=== PATIENT | male | born 1970 | race African-American/Black ===

== ENCOUNTER 2019-01-17 12:53 | Inpatient (IN) | payer OTHER ==
[2019-01-17 15:51] VITALS: BMI 37.1
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
[2019-01-17] MEDS ORDERED: P-EPHED 60MG/TRIPROLIDI 2.5MG TABLET PO PRN (18:03)
[2019-01-17] MEDS ORDERED: MENTHOL/PHENOL 1 EACH UD MM PRN (18:03)
[2019-01-17] MEDS ORDERED: MAGNESIUM CITRATE 300 ML BOTTLE PO PRN (18:03)
[2019-01-17] MEDS ORDERED: LOPERAMIDE HCL 2 MG CAPSULE PO PRN (18:03)
[2019-01-17] MEDS ORDERED: NICOTINE POLACRILEX 2 MG GUM BC PRN (18:03)
[2019-01-17] MEDS ORDERED: MAGNESIUM HYDROX 2400MG/30ML ORAL SUSPENSION 30 ML CUP PO PRN (18:03)
[2019-01-17] MEDS ORDERED: guaiFENesin 200 MG/10 ML 10 ML UNIT-DOSE CUPS PO PRN (18:03)
[2019-01-17] MEDS ORDERED: ACETAMINOPHEN 325 MG TABLET (FP) PO PRN (18:03)
[2019-01-17] MEDS ORDERED: MAG HYDROX/AL HYDROX/SIMETH 30 ML UNIT-DOSE CUP PO PRN (18:03)
[2019-01-17] MEDS ORDERED: IBUPROFEN 400 MG TABLET (FP) PO PRN (18:03)
[2019-01-17] MEDS ORDERED: PROCHLORPERAZINE MALEATE 5 MG TABLET PO PRN (18:05)
--- NOTE | 2019-01-17 18:08 | PN ---
Teaching Attending Note Name of Resident: Martha Vallejo ATTENDING PHYSICIAN STATEMENT I saw and evaluated the patient. I reviewed the resident's note and discussed the case with the resident. I agree with the resident's findings and plan as documented. SUBJECTIVE: pt here requesting rehab- pt has long h/o cocaine/alcohol and MJ use. Pt is not in withdrawal and has low CIWA and COWS score OBJECTIVE: Vital Signs - 24 hr 01/17/19 15:40 Temperature 96.8 F L Pulse Rate 87 Respiratory 14 Rate Blood Pressure 134/74 alert and oriented non tremulous ASSESSMENT AND PLAN: Alcohol/cocaine/MJ use disorder- pt currently not with withdrawal Sx, to rehab unit for further management
[2019-01-17] MEDS ORDERED: cloNIDine HCL 0.1 MG TABLET PO PRN (18:12)
[2019-01-17] MEDS ORDERED: MELATONIN 5 MG TABLETS PO PRN (22:00)
[2019-01-17] MEDS: THIAMINE HCL 100 MG TABLET (FP) PO SCH (22:25)
[2019-01-18] MEDS ORDERED: PRENATAL VITAMINS W/ FOLIC ACID TABLET (FP) PO SCH (10:00)
[2019-01-18 10:49] LABS: EPI CELLS 1.5 /HPF (0-5/HPF); HYALINE CASTS 1 /lpf (0-8); PH,URINE 5.5 (5.0-8.0); URINE APPEARANCE TURBID; URINE BACTERIA 36.7 /hpf (NEGATIVE); URINE BILIRUBIN NEGATIVE (NEGATIVE); URINE COLOR YELLOW; URINE GLUCOSE (UA) NEGATIVE (NEGATIVE); URINE KETONE NEGATIVE (NEGATIVE); URINE LEUK ESTERASE NEGATIVE (NEGATIVE); URINE NITRITE NEGATIVE (NEGATIVE); URINE PROTEIN 1+ (NEGATIVE); URINE RBC 1 /hpf (0-4); URINE UROBILINOGEN 0.2 mg/dL (0.2-1.0); URINE WBC 1 /hpf (0-5)
[2019-01-18] MEDS: THIAMINE HCL 100 MG TABLET (FP) PO SCH (22:01)
[2019-01-19 07:07] VITALS: BP 138/83; PULSE 68; TEMP 98.8
--- NOTE | 2019-01-19 09:37 | PN ---
[facility] Progress Note (SOAP) Subjective: Patient is leaving AMA for personal reasons that he did not wish to disclose. HOSPITAL COURSE: patient was admitted to the rehab unit on 01/17, attended group meetings on 01/18, and met with his counselor for one session. During his hospital stay, he did not request medications for withdrawal symptoms and refused medications that were offered. 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 Vital Signs (72 hours) 01/17/19 01/17/19 01/18/19 15:40 19:35 03:30 Temperature 96.8 F L 96.5 F L Pulse Rate 87 72 Respiratory 14 18 18 Rate Blood Pressure 134/74 136/81 01/18/19 01/19/19 01/19/19 06:55 00:30 03:30 Temperature 98.6 F Pulse Rate 76 Respiratory 18 18 18 Rate Blood Pressure 134/87 01/19/19 07:06 Temperature 98.8 F Pulse Rate 68 Respiratory 18 Rate Blood Pressure 138/83 01/19/19 09:41 Assessment: Medically stable for discharge Discharge Dx ETOH dependence Cannabis Dependence +PPD 01/19/19 09:44 Plan: On-going continuing care: Patient will receive aftercare at [facility]. He also plans to attend a 12 step program. He receives on-going medical care at [facility]. Patient was encouraged to make an appointment within the next 2 weeks. Patient does not take medications for any conditions at this time.
== END 2019-01-19 09:48 | disposition left against medical advice (07) | DRG 770 ==
LOC: YASAS 12:53 → Y3W 18:01
PROVIDERS: ADMIT Neuromusculoskeletal Medicine & OMM; ATTEND Neuromusculoskeletal Medicine & OMM
PROC: HZ42ZZZ Group Counseling for Substance Abuse Treatment, Cognitive-Behavioral (ICD-10-PCS; principal; 2019-01-17)
DX: F10.20 Alcohol dependence, uncomplicated (principal); F14.20 Cocaine dependence, uncomplicated; F12.20 Cannabis dependence, uncomplicated; R76.11 Nonspecific reaction to tuberculin skin test without active tuberculosis
CPT/HCPCS: 71046-TC-FY; 81003